=== PATIENT | female | born 1960 | race Caucasian/White ===

== ENCOUNTER 2017-08-03 13:25 | Observation (INO) | payer MEDICAID ==
[~2017-08-03] VITALS: Ht 165.1 cm; Wt 80.3 kg
[2017-08-03] MEDS ORDERED: LIDOCAINE 2%,20 ML JEL.PF.APP MM ONE (13:54)
[2017-08-03] MEDS ORDERED: ASPIRIN 81 MG TABLET CHEW ONE (14:21)
[2017-08-03] MEDS ORDERED: ASPIRIN 81 MG TABLET CHEW PO ONE (14:30)
[2017-08-03 14:41] LABS: BASOPHILS # (AUTO) 0.04 x10^3/uL (0-0.1); BASOPHILS % (AUTO) 1 % (0-1); EOSINOPHILS # (AUTO) 0.15 x10^3/uL (0-0.4); EOSINOPHILS % (AUTO) 2 % (1-7); LYMPHOCYTES # (AUTO) 2.85 x10^3/uL (1-3.4); LYMPHOCYTES % (AUTO) 40 % (22-44); MD NO; MEAN CORPUSCULAR HEMOGLOBIN 29.6 pg (27.0-34.8); MEAN CORPUSCULAR HGB CONC 33.4 g/dL (32.4-35.8); MEAN CORPUSCULAR VOLUME 88.6 fL (80-100); MEAN PLATELET VOLUME 8.3 fL (7.4-10.4); MONOCYTES # (AUTO) 0.46 x10^3/uL (0.2-0.8); MONOCYTES % (AUTO) 6 % (2-9); NEUTROPHILS % (AUTO) 51 % (42-75); PLATELET COUNT 328 x10^3/uL (130-400); RED BLOOD COUNT 4.62 x10^6/uL (3.82-5.3); RED CELL DISTRIBUTION WIDTH 13.1 % (9.6-15.2)
[2017-08-03 14:43] LABS: ALBUMIN 3.7 g/dL (3.4-5.0); ANION GAP 8 mmol/L (5-15); CALCIUM 8.8 mg/dL (8.5-10.1); CHLORIDE 109 mmol/L (98-107)
[2017-08-03 14:49] LABS: ALANINE AMINOTRANSFERASE 28 U/L (12-78); ALKALINE PHOSPHATASE 126 U/L (45-117); BILIRUBIN,TOTAL 0.4 mg/dL (0.2-1.0); CREATININE 0.65 mg/dL (0.55-1.02); TOTAL PROTEIN 7.1 g/dL (6.4-8.2); TROPONIN I < 0.015 ng/mL (0.000-0.045)
[2017-08-03] MEDS ORDERED: GABA300C10 PO (15:58)
[2017-08-03] MEDS ORDERED: ONDANSETRON ODT 4 MG PO PRN (16:00)
[2017-08-03] MEDS ORDERED: ENOXAPARIN 40 MG/0.4 ML SQ SCH (16:00)
[2017-08-03] MEDS ORDERED: ENALAPRILAT 1.25 MG/ML, 2ML IVPush PRN (16:00)
[2017-08-03] MEDS ORDERED: morphine SULFATE 10 MG/ML, 1ML IVPush PRN (16:00)
[2017-08-03] MEDS ORDERED: ONDANSETRON 2MG/ML, 2ML IVPush PRN (16:00)
[2017-08-03] MEDS ORDERED: BISACODYL 10 MG SUPP PR PRN (16:00)
[2017-08-03] MEDS ORDERED: ACETAMINOPHEN 325 MG TABLET PO PRN (16:00)
[2017-08-03] MEDS ORDERED: TRAZODONE 50MG TABLET PO PRN (16:00)
[2017-08-03] MEDS ORDERED: DOCUSATE 100 MG CAPSULE PO PRN (16:00)
[2017-08-03] MEDS: GABAPENTIN 300 MG CAPSULE PO SCH ×2 (17:19→20:55)
[2017-08-03 20:00] VITALS: BP 161/83
[2017-08-03] MEDS: SODIUM CHLORIDE FLUSH 10ML SYR IVF SCH (20:54)
[2017-08-03] MEDS: FAMOTIDINE 20 MG TABLET PO SCH (20:54)
[2017-08-03] MEDS: LISINOPRIL 20 MG TABLET PO SCH (20:55)
[2017-08-03] MEDS ORDERED: ATORVASTATIN 10 MG TABLET PO SCH (21:00)
[2017-08-03 21:19] LABS: TROPONIN I < 0.015 ng/mL (0.000-0.045)
[2017-08-04 02:00] VITALS: BP 130/79
[2017-08-04 03:16] LABS: BASOPHILS # (AUTO) 0.05 x10^3/uL (0-0.1); BASOPHILS % (AUTO) 1 % (0-1); EOSINOPHILS # (AUTO) 0.14 x10^3/uL (0-0.4); EOSINOPHILS % (AUTO) 3 % (1-7); LYMPHOCYTES # (AUTO) 2.47 x10^3/uL (1-3.4); LYMPHOCYTES % (AUTO) 42 % (22-44); MD NO; MEAN CORPUSCULAR HEMOGLOBIN 28.7 pg (27.0-34.8); MEAN CORPUSCULAR HGB CONC 32.7 g/dL (32.4-35.8); MONOCYTES # (AUTO) 0.36 x10^3/uL (0.2-0.8); MONOCYTES % (AUTO) 6 % (2-9); NEUTROPHILS % (AUTO) 48 % (42-75); PLATELET COUNT 291 x10^3/uL (130-400); RED BLOOD COUNT 4.43 x10^6/uL (3.82-5.3)
[2017-08-04 03:40] LABS: ALANINE AMINOTRANSFERASE 20 U/L (12-78); ANION GAP 8 mmol/L (5-15); CALCIUM 8.4 mg/dL (8.5-10.1); CHLORIDE 109 mmol/L (98-107); CREATININE 0.66 mg/dL (0.55-1.02)
[2017-08-04 03:44] LABS: ALKALINE PHOSPHATASE 102 U/L (45-117); BILIRUBIN,TOTAL 0.3 mg/dL (0.2-1.0); TROPONIN I < 0.015 ng/mL (0.000-0.045)
[2017-08-04 07:42] VITALS: BP 115/74
[2017-08-04] MEDS ORDERED: REGADENOSON 0.4 MG/5 ML SYRINGE ONE (07:59)
[2017-08-04] MEDS: GABAPENTIN 300 MG CAPSULE PO SCH (08:06)
[2017-08-04] MEDS: FAMOTIDINE 20 MG TABLET PO SCH (08:06)
[2017-08-04] MEDS: LISINOPRIL 20 MG TABLET PO SCH (08:06)
[2017-08-04] MEDS: SODIUM CHLORIDE FLUSH 10ML SYR IVF SCH (08:07)
[2017-08-04] MEDS ORDERED: ASPIRIN 325 MG TABLET EC PO SCH (10:00)
[2017-08-04] MEDS ORDERED: ASPIRIN 325 MG TABLET ONE (11:25)
[2017-08-04] MEDS ORDERED: ASPI-496 PO (12:26)
[2017-08-04] MEDS ORDERED: ATOR10TA9 PO (12:28)
[2017-08-04 13:10] VITALS: BP 135/83
== END 2017-08-04 14:45 | disposition home or self-care (01) ==
LOC: ED 14:55 → EDIP 15:15 → 5SO 16:14 → DCLOUNGE 08-04 14:26
PROVIDERS: ADMIT Hospitalist; ATTEND Hospitalist
DX: R07.89 Other chest pain (principal); I11.0 Hypertensive heart disease with heart failure; I50.9 Heart failure, unspecified; E78.5 Hyperlipidemia, unspecified; R79.89 Other specified abnormal findings of blood chemistry; Z87.891 Personal history of nicotine dependence; Z79.82 Long term (current) use of aspirin
CPT/HCPCS: 36415; 71045; 78452; 80053; 80074; 84484; 85025; 93005; 93017; 96372; 99285; A9502; C9898; G0378; J1650; J2785